=== PATIENT | male | born 1970 | race Caucasian/White ===

== ENCOUNTER 2019-09-16 18:55 | Emergency (ER) | payer OTHER ==
[2019-09-16] MEDS ORDERED: Sodium Chloride 0.9% 1,000 ML IV ONE (19:37)
[2019-09-16] MEDS ORDERED: Acetaminophen 325 MG Tab PO ONE (20:01)
[2019-09-16 20:02] LABS: ANION GAP 14.8 mEq/L (7-13); CHLORIDE,CL 99 mmol/L (98-107); SODIUM,NA 136 mmol/L (136-145)
[2019-09-16] MEDS ORDERED: Ondansetron 4 MG/2 ML SDV IVPUSH ONE (20:03)
[2019-09-16] MEDS ORDERED: Ketorolac 30 MG/ML SDV IVPUSH ONE (20:43)
[2019-09-16] MEDS ORDERED: Iopamidol 612 MG/ML 100 ML Bottle IVPUSH ONE (20:43)
[2019-09-16] MEDS ORDERED: cefTRIAXone 2 GM in Sodium Chloride 0.9% 100 ML IV ONE (21:16)
--- NOTE | 2019-09-16 21:29 | CT ---
PROCEDURE INFORMATION: Exam: CT Abdomen And Pelvis With Contrast Exam date and time: 09/16/2019 9:12 PM Age: 49 years old Clinical indication: Other: Pain, wbc 14,200--hx uti's; Additional info: Fever chills, flank pain nausea TECHNIQUE: Imaging protocol: Computed tomography of the abdomen and pelvis with intravenous contrast. Radiation optimization: All CT scans at this facility use at least one of these dose optimization techniques: automated exposure control; mA and/or kV adjustment per patient size (includes targeted exams where dose is matched to clinical indication); or iterative reconstruction. Contrast material: [id number]; Contrast volume: 100 ml; Contrast route: LEFT HAND; COMPARISON: No relevant prior studies available. FINDINGS: Lungs: Focal consolidation in the medial aspect of the right middle lobe. Liver: Normal. No mass. Gallbladder and bile ducts: The gallbladder is contracted. There is the suggestion of stones in the gallbladder lumen. There are no findings to suggest acute cholecystitis. Pancreas: Normal. No ductal dilation. Spleen: Normal. No splenomegaly. Adrenals: Soft tissue nodule arising from the left adrenal gland measures 1.3 x 1.5 cm. Consider dedicated adrenal imaging for further assessment. Kidneys and ureters: Normal. No hydronephrosis. Stomach and bowel: Unremarkable. No obstruction. No mucosal thickening. Appendix: Status post appendectomy. Intraperitoneal space: Unremarkable. No free air. No significant fluid collection. Vasculature: Unremarkable. No abdominal aortic aneurysm. Lymph nodes: Unremarkable. No enlarged lymph nodes. Bladder: Circumferential wall thickening of the urinary bladder suggests cystitis. Small right bladder diverticulum. Reproductive: Unremarkable as visualized. Bones/joints: Unremarkable. No acute fracture. Soft tissues: Unremarkable. IMPRESSION: 1. Thickened urinary bladder suggests cystitis. 2. The gallbladder is collapsed. There is a suggestion of gallstones in the gallbladder lumen. 3. No CT evidence for pyelonephritis or hydronephrosis. 4. Incompletely imaged right middle lobe consolidation.
--- NOTE | 2019-09-16 22:12 | EDM.PDOC ---
ED HPI GENERAL MEDICAL PROBLEM - General Chief Complaint: Genitourinary Problem Stated Complaint: UTI Time Seen by Provider: 09/16/19 19:15 Source of Information: Reports: Patient History Limitations: Reports: No Limitations - History of Present Illness INITIAL COMMENTS - FREE TEXT/NARRATIVE: ED with c/o UTI with increased frequency and burning with urination, has had previous. left flank pain. No hx of stones. No fever, Some chills, Emesis x 1 Feel weak, Denies hx of STD's. Has been tested many times prior. One partner, no concerns. Right Flank Pain Score (Numeric/FACES): 7 - Related Data Allergies Allergy/AdvReac Type Severity Reaction Status Date / Time No Known Allergies Allergy Verified 09/16/19 19:17 Past Medical History Genitourinary History: Reports: UTI, Recurrent Musculoskeletal History: Reports: Fracture - Past Surgical History Musculoskeletal Surgical History: Reports: Other (See Below) Other Musculoskeletal Surgeries/Procedures:: surgery to clavical Social & Family History - Tobacco Use Smoking Status *Q: Current Every Day Smoker Years of Tobacco use: 30 Packs/Tins Daily: 2 Second Hand Smoke Exposure: Yes - Recreational Drug Use Recreational Drug Use: Yes Drug Use in Last 12 Months: Yes Recreational Drug Type: Reports: Marijuana/Hashish ED ROS GENERAL - Review of Systems Review Of Systems: Comprehensive ROS is negative, except as noted in HPI. ED EXAM, RENAL/ - Physical Exam Exam: See Below Exam Limited By: No Limitations General Appearance: Alert, No Apparent Distress Eye Exam: Bilateral Eye: EOMI Ears: Normal External Exam Throat/Mouth: Normal Inspection Head: Atraumatic, Normocephalic Neck: Normal Inspection Respiratory/Chest: No Respiratory Distress, Lungs Clear, Normal Breath Sounds Cardiovascular: Regular Rate, Rhythm GI/Abdominal: Soft, Non-Tender. No: Distended, Guarding Back Exam: CVA Tenderness (L) (mild) Extremities: Normal Inspection Neurological: Alert, Oriented, Normal Cognition Psychiatric: Normal Affect Skin Exam: Warm, Dry, Intact, Normal Color Course - Vital Signs Last Recorded V/S: Last Vital Signs Temp 97.2 F 09/16/19 22:04 Pulse 87 09/16/19 22:04 Resp 18 09/16/19 19:10 BP 102/62 09/16/19 22:04 Pulse Ox 97 09/16/19 22:04 - Orders/Labs/Meds Labs: Laboratory Tests 09/16/19 09/16/19 09/16/19 Range/Units 19:22 19:35 19:35 WBC 14.3 H (5.0-10.0) 10^3/uL RBC 4.50 L (4.6-6.2) 10^6/uL Hgb 14.1 (14.0-18.0) g/dL Hct 40.6 (40.0-54.0) % MCV 90.2 (80-100) fL MCH 31.3 (27.0-34.0) pg MCHC 34.7 (33.0-35.0) g/dL Plt Count 175 (150-450) 10^3/uL Neut % (Auto) 82.0 H (42.2-75.2) % Lymph % (Auto) 9.9 L (20.5-50.1) % Mcleod % (Auto) 7.6 (2-8) % Eos % (Auto) 0.3 L (1.0-3.0) % Baso % (Auto) 0.2 (0.0-1.0) % Sodium 136 (136-145) mmol/L Potassium 3.8 (3.5-5.1) mmol/L Chloride 99 (98-107) mmol/L Carbon Dioxide 26 (21-32) mmol/L Anion Gap 14.8 H (7-13) mEq/L BUN 13 (7-18) mg/dL Creatinine 1.11 (0.70-1.30) mg/dL Est Cr Clr Drug Dosing 82.27 mL/min Estimated GFR (MDRD) > 60 BUN/Creatinine Ratio 11.7 (No establ ref range) Glucose 120 H (74-99) mg/dL Lactic Acid (0.4-2.0) mmol/L Calcium 8.6 (8.5-10.1) mg/dL Total Bilirubin 0.6 (0.2-1.0) mg/dL AST 18 (15-37) U/L ALT 25 (16-63) U/L Alkaline Phosphatase 87 (46-116) U/L Total Protein 7.3 (6.4-8.2) g/dL Albumin 3.5 (3.4-5.0) g/dL Globulin 3.8 Albumin/Globulin Ratio 0.9 Urine Color Yellow (YELLOW) Urine Appearance Slightly cloudy (CLEAR) Urine pH 7.0 (5.0-9.0) Ur Specific [place] 1.025 (1.005-1.030) Urine Protein 30 H (NEGATIVE) Urine Glucose (UA) Negative (NEGATIVE) Urine Ketones Trace H (NEGATIVE) Urine Occult Blood Small H (NEGATIVE) Urine Nitrite Negative (NEGATIVE) Urine Bilirubin Negative (NEGATIVE) Urine Urobilinogen 0.2 (0.2-1.0) mg/dL Ur Leukocyte Esterase Negative (NEGATIVE) Urine RBC 20-30 H /HPF Urine WBC 5-10 H (0-5/HPF) /HPF Ur Epithelial Cells Many H (NOT SEEN) /HPF Urine Bacteria Many H (0-FEW/HPF) /HPF Urine Mucus Moderate H (NOT SEEN) /LPF 09/16/19 Range/Units 19:35 WBC (5.0-10.0) 10^3/uL RBC (4.6-6.2) 10^6/uL Hgb (14.0-18.0) g/dL Hct (40.0-54.0) % MCV (80-100) fL MCH (27.0-34.0) pg MCHC (33.0-35.0) g/dL Plt Count (150-450) 10^3/uL Neut % (Auto) (42.2-75.2) % Lymph % (Auto) (20.5-50.1) % Mcleod % (Auto) (2-8) % Eos % (Auto) (1.0-3.0) % Baso % (Auto) (0.0-1.0) % Sodium (136-145) mmol/L Potassium (3.5-5.1) mmol/L Chloride (98-107) mmol/L Carbon Dioxide (21-32) mmol/L Anion Gap (7-13) mEq/L BUN (7-18) mg/dL Creatinine (0.70-1.30) mg/dL Est Cr Clr Drug Dosing mL/min Estimated GFR (MDRD) BUN/Creatinine Ratio (No establ ref range) Glucose (74-99) mg/dL Lactic Acid 1.2 (0.4-2.0) mmol/L Calcium (8.5-10.1) mg/dL Total Bilirubin (0.2-1.0) mg/dL AST (15-37) U/L ALT (16-63) U/L Alkaline Phosphatase (46-116) U/L Total Protein (6.4-8.2) g/dL Albumin (3.4-5.0) g/dL Globulin Albumin/Globulin Ratio Urine Color (YELLOW) Urine Appearance (CLEAR) Urine pH (5.0-9.0) Ur Specific [place] (1.005-1.030) Urine Protein (NEGATIVE) Urine Glucose (UA) (NEGATIVE) Urine Ketones (NEGATIVE) Urine Occult Blood (NEGATIVE) Urine Nitrite (NEGATIVE) Urine Bilirubin (NEGATIVE) Urine Urobilinogen (0.2-1.0) mg/dL Ur Leukocyte Esterase (NEGATIVE) Urine RBC /HPF Urine WBC (0-5/HPF) /HPF Ur Epithelial Cells (NOT SEEN) /HPF Urine Bacteria (0-FEW/HPF) /HPF Urine Mucus (NOT SEEN) /LPF Meds: Medications Discontinued Medications Generic Name Dose Route Start Last Admin Trade Name Freq PRN Reason Stop Dose Admin Acetaminophen 650 mg 09/16/19 20:01 09/16/19 20:10 Tylenol PO 09/16/19 20:02 650 mg NOW ONE Administration Sodium Chloride 1,000 mls @ 999 mls/hr 09/16/19 19:37 09/16/19 19:40 Normal Saline IV 09/16/19 20:37 999 mls/hr .BOLUS ONE Administration Ceftriaxone Sodium 2 gm/ 100 mls @ 200 mls/hr 09/16/19 21:16 09/16/19 21:31 Sodium Chloride IV 09/16/19 21:45 200 mls/hr ONETIME ONE Administration Iopamidol 100 ml 09/16/19 20:43 09/16/19 20:55 Isovue-300 (61%) IVPUSH 09/16/19 20:44 100 ml ONETIME ONE Administration Ketorolac Tromethamine 30 mg 09/16/19 20:43 09/16/19 20:54 Toradol IVPUSH 09/16/19 20:44 30 mg ONETIME ONE Administration Ondansetron HCl 4 mg 09/16/19 20:03 09/16/19 20:07 Zofran IVPUSH 09/16/19 20:04 4 mg ONETIME ONE Administration Departure - Departure Time of Disposition: 22:11 Disposition: Home, Self-Care 01 Condition: Good Clinical Impression: Dysuria, Dehydration, mild Nausea & vomiting Qualifiers: Vomiting type: bilious vomiting Qualified Code(s): R11.14 - Bilious vomiting - Discharge Information *PRESCRIPTION DRUG MONITORING PROGRAM REVIEWED*: No *COPY OF PRESCRIPTION DRUG MONITORING REPORT IN PATIENT CHRISTI: No Instructions: Urinary Tract Infection, Adult, [id number], Nausea and Vomiting , Adult Forms: ED Department Discharge Additional Instructions: ncrease fluids cipro 500mg one twice daily for one week light bland diet advance as tolerated alternate tylenol and ibuprofen every 4 hours as needed follow up if symptoms worsen Sepsis Event Note (ED) - Evaluation Sepsis Screening Result: No Definite Risk
== END 2019-09-16 22:42 | disposition home or self-care (01) ==
LOC: DL.ED 18:55
DX: R30.0 Dysuria (principal); E86.0 Dehydration; R11.14 Bilious vomiting; F17.210 Nicotine dependence, cigarettes, uncomplicated
CPT/HCPCS: 36415; 74177; 80053; 81001; 83605; 85025; 87040; 87491; 87591; 96361; 96365; 96375; 99284; A9270; J0696; J1885; J2405; J7030; J7050; Q9967